=== PATIENT | female | born 1950 | race Caucasian/White ===

== ENCOUNTER → 2024-03-07 15:09 | Outpatient (REF) | payer OTHER, SELFPAY | LOC: RAD 15:09 | PROVIDERS: ATTENDING PHYSICIAN Specialist; FAMILY PHYSICIAN Physician Assistant Medical | DX: G30.1 Alzheimer's disease with late onset (principal) | CPT/HCPCS: 70450 ==

== ENCOUNTER 2024-07-27 18:38 | Emergency (ER) | payer OTHER, SELFPAY ==
[2024-07-27 18:44] VITALS: BP 116/85
[2024-07-27] MEDS: ADACEL 0.5 ML IM (20:24)
[2024-07-27 20:40] VITALS: BP 158/84
--- NOTE | 2024-07-27 23:08 | ED.SKININJ ---
HPI-Injury
General
Chief Complaint: Skin Problem
Source: patient
Exam Limitations: none
Time Seen by Provider: 07/27/24 19:22
Nursing documentation reviewed up to this point in time: agreed with
History of Present Illness-Injury
Is this injury a work related problem?: No
Is pt an associate of [facility]/[place]?: No
Initial Injury comments:
Accidentally cut finger with knife. SHe has a superficial avulsion injury to her left middle finger. Injury occurred just [employer]
Past History
Past History
ED Past Medical History: Psychiatric (Depression) and Other (Right ear hearing loss)
ED Past Surgical History: Gynecological (Hysterectomy)
Social History
Tobacco: Non-smoker
Alcohol: None
Drug: None
Living: with family
Review of Systems
Review of Systems
Allergies reviewed?: Yes
All Other Systems: ROS reviewed and negative except as documented in HPI and ROS
Constitutional: Reports no symptoms
Musculoskeletal: Reports no symptoms
Skin: Reports no symptoms and other (superficial avulsion injury left middle finger)
Neurological: Reports no symptoms
Psychiatric: Reports no symptoms
Skin Exam
Avulsion
Left Distal Third Finger:
Type of avulsion injury: avulsion
Any active bleeding?: no active bleeding
Distal skin color and temperature: normal-warm & good color
Normal distal neurovascular exam: Yes
Phy Exam
General Physical Exam
General Presentation: well appearing and no apparent distress
General age: appears stated age
General Skin: warm and dry
General Habitus: normal
General Mental: alert
Musculoskeletal Exam
Musculoskeletal Exam: full ROM and neuro vasc intact
Skin Exam
Skin Exam: normal color and warm/dry
Psychiatric Exam
Psychiatric Exam: normal mood/affect
Course
Orders/Labs/Results
Orders:
Orders
07/27/24 20:14
Tetanus/Diphth/Acelpertussis [Adacel] 0.5 ml IM .ONCE ONE
Vital Signs
Initial and Last Documented VS:
Initial Vital Signs
Temp Pulse Resp BP Pulse Ox
98.3 F 68 18 116/85 95
07/27/24 18:44 07/27/24 18:44 07/27/24 18:44 07/27/24 18:44 07/27/24 18:44
Last Documented Vital Signs
Temp Pulse Resp BP Pulse Ox
98.3 F 63 18 158/84 96
07/27/24 18:44 07/27/24 20:40 07/27/24 20:40 07/27/24 20:40 07/27/24 20:40
*Critical Care Note
Total Time (30-74mins, 75-104mins- exclusive of procedures): Not Applicable
Update Note
Update Note:
Wound cleansed with NSS and dried. Small piece of gelfoam applied and covered with gauze.
ED Attending Note
-
Portions of this chart may have been created with voice recognition software.� Occasional wrong word or��sound alike� substitutions may have occurred due to the inherent limitations of voice recognition software.
Discharge Plan
Departure
Patient Disposition: Home (Routine Discharge)
Date of Disposition: 07/27/24
Time of Disposition: 20:14
Patient with high blood pressure during this ER visit?: No
Condition: Good
Covid-19: Not Applicable
Discharge Problem:
Avulsion of skin
Instructions: Wound Care (DC)
Prescriptions:
No Action
amoxicillin 500 MG capsule
500 mg PO TID Qty: 30 0RF
Referrals:
Dacia Ayers PA-C [Family Provider] - Follow up in 2-3 days
Interventions
Interventions:
*Risk Screen - Suicide Last Done: 07/27/24 18:44
*General Assessment Last Done: 07/27/24 19:26
*Neglect/Abuse Screening Last Done: 07/27/24 18:44
*Nursing Disposition Last Done: 07/27/24 20:40
ED-Skin Assessment Last Done: 07/27/24 19:26
Discharge Date and Time
Print Language: KYRGYZ
== END 2024-07-27 23:09 | disposition home or self-care (01) ==
LOC: EMR 18:38
PROVIDERS: EMERGENCY PHYSICIAN Emergency Medicine; FAMILY PHYSICIAN Physician Assistant Medical
DX: S61.213A Laceration without foreign body of left middle finger without damage to nail, initial encounter (principal); W26.0XXA Contact with knife, initial encounter; Y93.G1 Activity, food preparation and clean up; Z23 Encounter for immunization; F32.A Depression, unspecified; H91.91 Unspecified hearing loss, right ear; F03.90 Unspecified dementia, unspecified severity, without behavioral disturbance, psychotic disturbance, mood disturbance, and anxiety
CPT/HCPCS: 99283; 90471; 90715

== ENCOUNTER 2025-04-20 14:22 | Emergency (ER) | payer OTHER, SELFPAY ==
[2025-04-20 14:26] VITALS: BP 108/77
--- NOTE | 2025-04-20 16:02 | ED.GENMED ---
History of Present Illness
General
Chief Complaint: Fall
Time Seen by Provider: 04/20/25 15:28
History of Present Illness
History of Present Illness:
Note:
CHIEF COMPLAINT(S)
Right knee pain following an injury.
HISTORY OF PRESENT ILLNESS
The patient is a 74-year-old female who sustained a right knee injury while walking [place]. During the incident, she twisted her knee on an unstable rock but did not notice she fell until later observing grass stains. The patient
described being able to walk on the knee and perform full extension. Upon examination, there was pain located internally and not on palpation of specific areas. An x-ray showed no evidence of fracture, but there was mild arthritis and fluid in the
knee joint. The pain appears to be related to a twisting injury, exacerbated by underlying arthritic changes. The patient does not use blood-thinning medication and has no known issues with anti-inflammatory medications.
PHYSICAL EXAM
- Mild swelling in the right knee.
- Full range of motion noted.
- No large joint effusion.
- No bony tenderness to the proximal tibia or distal femur.
- Nursing notes reviewed and vital signs reviewed.
PLAN
- Recommend ice and anti-inflammatory medication, such as ibuprofen, for one to two weeks.
- Referral to an orthopedist for follow-up if symptoms do not improve.
- Written prescription for ibuprofen to ensure administration where the patient resides.
- Prescription for physical therapy evaluation to aid in knee rehabilitation.
DIFFERENTIAL DIAGNOSIS
The Differential Diagnosis includes, in no particular order and is not limited to:
1. Knee sprain
2. Meniscal tear
3. Ligamentous injury (e.g., posterior cruciate ligament)
4. Osteoarthritis exacerbation
5. Patellar subluxation
6. Fracture (ruled out by imaging)
7. Bursitis
8. Tendonitis
9. Synovitis
10. Contusion
Disposition:
SUMMARY OF ENCOUNTER
The patient is a 74-year-old female who presented with right knee pain following a twisting injury while walking [place] a [place]. She can bear weight, and an x-ray was conducted which showed no evidence of an acute fracture. Based on the mechanism of
the injury, there is suspicion of internal derangement or a meniscal injury.
ASSESSMENT
The patients knee pain is likely due to a possible meniscal injury or internal derangement as indicated by the twisting mechanism of the injury.
PLAN
Recommend the application of ice and the use of anti-inflammatory medication, such as ibuprofen, for one to two weeks. A follow-up with an orthopedist is advised if symptoms do not improve. A prescription for ibuprofen was written.
INDEPENDENT INTERPRETATION OF TESTS
My independent interpretation of the knee x-ray indicates there is no acute fracture.
FOLLOW-UP INSTRUCTIONS
The patient should follow-up with an orthopedist if there is no improvement in symptoms over the next one to two weeks.
MEDICATION RECONCILIATION
A prescription for ibuprofen was provided to manage knee pain and inflammation.
MEDICAL DECISION MAKING
The patient presented with an acute concern of knee pain following an injury, with considerations including a possible meniscal injury or internal derangement. The decision for additional follow-up with an orthopedist was made to ensure appropriate
management if symptoms do not resolve. The patients current medication usage, including blood-thinning medication, was reviewed, and an anti-inflammatory regimen was initiated with ibuprofen.
Past History
Past History
ED Past Medical History: Psychiatric (Depression) and Other (Right ear hearing loss)
ED Past Surgical History: Gynecological (Hysterectomy)
Social History
Tobacco: Non-smoker
Alcohol: None
Drug: None
Living: with family
Phy Exam
Physical Exam
Physical Exam:
.
Course
Orders/Labs/Results
Orders:
Orders
04/20/25 15:02
Knee, Right 4 or More Views [CR Knee- Right 4 Or More View*] Urgent
Comment:
Reason For Exam: pain/injury
Vital Signs
Initial and Last Documented VS:
Initial Vital Signs
Temp Pulse Resp BP Pulse Ox
98.4 F 72 18 108/77 97
04/20/25 14:26 04/20/25 14:26 04/20/25 14:26 04/20/25 14:26 04/20/25 14:26
Last Documented Vital Signs
Temp Pulse Resp BP Pulse Ox
98.4 F 72 18 108/77 97
04/20/25 14:26 04/20/25 14:26 04/20/25 14:26 04/20/25 14:26 04/20/25 14:26
*Critical Care Note
Total Time (30-74mins, 75-104mins- exclusive of procedures): Not Applicable
ED Attending Note
-
Portions of this chart may have been created with voice recognition software.� Occasional wrong word or��sound alike� substitutions may have occurred due to the inherent limitations of voice recognition software.
Discharge Plan
Departure
Patient Disposition: Home (Routine Discharge)
Date of Disposition: 04/20/25
Time of Disposition: 16:02
Patient with high blood pressure during this ER visit?: No
Discharge Problem:
Right knee sprain
Instructions: Knee Sprain ED
Prescriptions:
New
ibuprofen 400 mg tablet
400 mg PO Q8H PRN (Reason: Pain) 10 Days Qty: 30 0RF
No Action
amoxicillin 500 MG capsule
500 mg PO TID Qty: 30 0RF
Referrals:
NONE,* [Family Provider, Internal Medicine]
Brock Castelan MD [Active, Orthopedics]
Interventions
Interventions:
*Risk Screen - Suicide Last Done: 04/20/25 14:26
*General Assessment Last Done: 04/20/25 14:26
*Neglect/Abuse Screening Last Done: 04/20/25 14:26
*ED- Fall Risk Assessment Last Done: 04/20/25 15:00
*ED COVID-19 Vaccine History Last Done: 04/20/25 15:00
*Nursing Disposition Last Done: 04/20/25 16:20
ED-Musculoskeletal Assessment Last Done: 04/20/25 15:00
ED- Neurological Assessment Last Done: 04/20/25 15:00
ED-Skin Assessment Last Done: 04/20/25 15:00
Discharge Date and Time
Discharge Date/Time: 04/20/25 16:10
Print Language: SOMALI
--- NOTE | 2025-04-20 16:19 | EDRN ---
Patient discharged by Oz Betts PA-C. Unable to obtain vital signs
== END 2025-04-20 16:10 | disposition home or self-care (01) ==
LOC: EMR 14:22
PROVIDERS: EMERGENCY PHYSICIAN Student in an Organized Health Care Education/Training Program
DX: S83.91XA Sprain of unspecified site of right knee, initial encounter (principal); X50.1XXA Overexertion from prolonged static or awkward postures, initial encounter; Z90.710 Acquired absence of both cervix and uterus
CPT/HCPCS: 99283; 73564